=== PATIENT | female | born 1990 | race Caucasian/White ===

== ENCOUNTER 2018-02-22 19:21 | Emergency (ER) | payer BC, OTHER, SELFPAY ==
[2018-02-22 21:27] LABS: Absolute Lymphocytes (CBC) 2.2 K/uL (0.7-4.9); Absolute Monocytes 0.5 K/uL (0.1-1.3); Absolute Neutrophil 5.5 K/uL (1.8-8.0); Basophils % 0.8 % (0-1.3); Eosinophils % 0.8 % (0-4.4); Hematocrit 36.2 % (36.0-45.0); Lymphocytes % 26.2 % (15.3-44.8); MCH 32.4 pg (27.0-35.0); MPV 9.2 fL (7.6-11.3); RBC Red Blood Cell Count 3.89 M/uL (3.86-4.86)
[2018-02-22 21:29] LABS: BUN Blood Urea Nitrogen 12 mg/dL (7-18); Bicarbonate 23 mmol/L (21-32); Glucose Level 101 mg/dL (74-106); Potassium 3.6 mmol/L (3.5-5.1); Sodium Level 141 mmol/L (136-145); Troponin (Emerg Dept Use Only) < 0.02 ng/mL (0.0-0.045)
--- NOTE | 2018-02-22 21:48 | ER ---
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 pt ak1 c/o SOB with anxiety with chest pain. pt denies N/V. Transition of care: patient was not received from another setting of care. Onset of symptoms was February 22, 2018. Risk Assessment: Do you want to hurt yourself or someone else? Patient reports no desire to harm self or others. Initial Sepsis Screen: Does the patient meet any 2 criteria? No. Patient's initial sepsis screen is negative. Does the patient have a suspected source of infection? No. Patient's initial sepsis screen is negative. Care prior to arrival: None. 19:38 Method Of Arrival: Ambulatory ak1 19:38 Acuity: LARRY 3 ak1 Triage Assessment: 19:39 General: Appears in no apparent distress. Behavior is calm, cooperative. Pain: ak1 Complains of pain in chest. 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 - Social history:: Smoking status: Patient/guardian denies using tobacco. - Ebola Screening: : No symptoms or risks identified at this time. Screenin:42 Abuse screen: Denies threats or abuse. Denies injuries from another. Nutritional aj screening: No deficits noted. Tuberculosis screening: No symptoms or risk factors identified. Fall Risk None identified. Assessment: 21:42 General: Appears in no apparent distress. comfortable, Behavior is cooperative, aj appropriate for age, anxious. Pain: Denies pain. Neuro: Level of Consciousness is awake, alert, obeys commands, Oriented to person, place, time, situation, Appropriate for age. Cardiovascular: Reports since Episode of chest pain earlier this evening while at the dinner table. Respiratory: Airway is patent Respiratory effort is even, unlabored, Respiratory pattern is regular, symmetrical. Derm: Skin is intact, is healthy with good turgor, Skin is pink, warm \T\ dry. normal. 21:57 Reassessment: Patient appears in no apparent distress at this time. No changes from aj previously documented assessment. Patient and/or family updated on plan of care and expected duration. Pain level reassessed. Patient is alert, oriented x 3, equal unlabored respirations, skin warm/dry/pink. Patient states feeling better. Patient states symptoms have improved. 21:58 Pain: Pain began. aj Vital Signs: 19:39 BP 122 / 78; Pulse 81; Resp 16; Temp 97.6(TE); Pulse Ox 100% on R/A; Weight 63.5 kg ak1 (R); Height 5 ft. 4 in. (162.56 cm) (R); Pain 1/10; 19:55 BP 121 / 81 LA Supine (auto/reg); Pulse 75; Resp 21 S; Pulse Ox 100% on R/A; Pain 2/10; jp3 21:42 BP 128 / 82; Pulse 78; Resp 19; Pulse Ox 100% on R/A; aj 19:39 Body Mass Index 24.03 (63.50 kg, 162.56 cm) ak1 19:55 Pain report more pain than pressure but some pressure. jp3 ED Course: 19:23 Patient arrived in ED. as 19:24 Mya Clarke MD is Private Physician. as 19:39 Triage completed. ak1 19:39 Arm band placed on Patient placed in an exam room, on a stretcher, Patient notified of ak1 wait time. 19:40 Placed in gown. Bed in low position. Call light in reach. Side rails up X 1. Side rails jp3 up X2. Warm blanket given. clinical research monitor on. Pulse ox on. NIBP on. 19:45 EKG done, by ED staff, reviewed by Jose Estes MD. jp3 19:53 Stephy Carbajal, RN is Primary Nurse. aj 20:28 Jose Estes MD is Attending Physician. pkl 20:53 XRAY CXR (1 view) In Process Unspecified. EDMS 21:15 Inserted saline lock: 20 gauge in left antecubital area, using aseptic technique. Blood aj collected. 21:57 No provider procedures requiring assistance completed. IV discontinued, intact, aj bleeding controlled, No redness/swelling at site. Pressure dressing applied. Patient maintains SpO2 saturation greater than 95% on room air. Administered Medications: No medications were administered Outcome: 21:48 Discharge ordered by . jayant 21:57 Discharged to home ambulatory, with family. jill 21:57 Condition: good 21:57 Discharge instructions given to patient, family, Instructed on discharge instructions, follow up and referral plans. Demonstrated understanding of instructions, follow-up care. 21:58 Patient left the ED. aj Signatures: Dispatcher [employer] EDStephy Montenegro, RN Jose Butterfield MD MD pkl Martinez, Amelia as Krenek, Amber RN RN ak1 Alistair James jp3
--- NOTE | 2018-02-22 21:49 | EDPHYS ---
Physician Documentation [facility] Name: Gerri Grande Age: 27 yrs Sex: Female : 1990 Arrival Date: 02/22/2018 Time: 19:23 Bed 30 Private MD: Mya Clarke K ED Physician Jose Estes HPI: 02/22 20:35 This 27 yrs old Female presents to ER via Ambulatory with complaints of Chest pkl Pain. 20:35 The patient or guardian reports chest pain that is located primarily in the substernal pkl area. The pain does not radiate. Associated signs and symptoms: The patient has no apparent associated signs or symptoms. The chest pain is described as dull. The patient has not experienced similar symptoms in the past. 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 - Social history:: Smoking status: Patient/guardian denies using tobacco. - Ebola Screening: : No symptoms or risks identified at this time. ROS: 20:35 Eyes: Negative for injury, pain, redness, and discharge, ENT: Negative for injury, pkl pain, and discharge, Neck: Negative for injury, pain, and swelling. 20:35 Cardiovascular: Positive for chest pain. 20:35 Respiratory: Negative for cough, shortness of breath. 20:35 Abdomen/GI: Negative for abdominal pain, nausea, vomiting, and diarrhea. 20:35 Back: Negative for acute changes. 20:35 : Negative for urinary symptoms. 20:35 MS/extremity: Negative for acute changes. 20:35 Skin: Negative for rash. 20:35 Neuro: Negative for altered mental status. Exam: 20:35 Head/Face: Normocephalic, atraumatic. Eyes: Pupils equal round and reactive to light, pkl extra-ocular motions intact. Lids and lashes normal. Conjunctiva and sclera are non-icteric and not injected. Cornea within normal limits. Periorbital areas with no swelling, redness, or edema. ENT: Nares patent. No nasal discharge, no septal abnormalities noted. Tympanic membranes are normal and external auditory canals are clear. Oropharynx with no redness, swelling, or masses, exudates, or evidence of obstruction, uvula midline. Mucous membranes moist. Neck: Trachea midline, no thyromegaly or masses palpated, and no cervical lymphadenopathy. Supple, full range of motion without nuchal rigidity, or vertebral point tenderness. No Meningismus. Chest/axilla: Normal chest wall appearance and motion. Nontender with no deformity. No lesions are appreciated. Cardiovascular: Regular rate and rhythm with a normal S1 and S2. No gallops, murmurs, or rubs. Normal PMI, no JVD. No pulse deficits. Respiratory: Lungs have equal breath sounds bilaterally, clear to auscultation and percussion. No rales, rhonchi or wheezes noted. No increased work of breathing, no retractions or nasal flaring. Abdomen/GI: Soft, non-tender, with normal bowel sounds. No distension or tympany. No guarding or rebound. No evidence of tenderness throughout. Back: No spinal tenderness. No costovertebral tenderness. Full range of motion. Skin: Warm, dry with normal turgor. Normal color with no rashes, no lesions, and no evidence of cellulitis. MS/ Extremity: Pulses equal, no cyanosis. Neurovascular intact. Full, normal range of motion. Neuro: Awake and alert, GCS 15, oriented to person, place, time, and situation. Cranial nerves II-XII grossly intact. Motor strength 5/5 in all extremities. Sensory grossly intact. Cerebellar exam normal. Normal gait. Vital Signs: 19:39 BP 122 / 78; Pulse 81; Resp 16; Temp 97.6(TE); Pulse Ox 100% on R/A; Weight 63.5 kg ak1 (R); Height 5 ft. 4 in. (162.56 cm) (R); Pain 1/10; 19:55 BP 121 / 81 LA Supine (auto/reg); Pulse 75; Resp 21 S; Pulse Ox 100% on R/A; Pain 2/10; jp3 21:42 BP 128 / 82; Pulse 78; Resp 19; Pulse Ox 100% on R/A; aj 19:39 Body Mass Index 24.03 (63.50 kg, 162.56 cm) ak1 19:55 Pain report more pain than pressure but some pressure. jp3 MDM: 20:29 Patient medically screened. pkl 21:47 Data reviewed: vital signs, nurses notes, lab test result(s), EKG, radiologic studies, pkl plain films. 02/22 20:35 Order name: CBC with Diff; Complete Time: 21:45 pkl 02/22 20:35 Order name: Chem 7; Complete Time: 21:30 pkl 02/22 20:35 Order name: D-Dimer; Complete Time: 21:45 pkl 02/22 20:35 Order name: XRAY CXR (1 view) pkl 02/22 20:35 Order name: Troponin (emerg Dept Use Only); Complete Time: 21:30 pkl Administered Medications: No medications were administered Disposition: 02/22/18 21:48 Discharged to Home. Impression: Chest pain. - Condition is Stable. - Medication Reconciliation Form, Thank You Letter, Antibiotic Education, Prescription Opioid Use form. - Follow up: Private Physician; When: 2 - 3 days; Reason: Re-evaluation by your physician. - Problem is new. - Symptoms have improved. Signatures: Dispatcher [employer] EDStephy Montenegro RN RN Jose Chavarria MD MD pkl Rose Girard RN RN ak1 Corrections: (The following items were deleted from the chart) 21:58 21:48 02/22/2018 21:48 Discharged to Home. Impression: Chest pain. Condition is Stable. aj Forms are Medication Reconciliation Form, Thank You Letter, Antibiotic Education, Prescription Opioid Use. Follow up: Private Physician; When: 2 - 3 days; Reason: Re-evaluation by your physician. Problem is new. Symptoms have improved. pkl
--- NOTE | 2018-02-22 22:08 | RAD REPORT ---
EXAM DESCRIPTION: RAD - Chest Single View - 02/22/2018 8:53 pm CLINICAL HISTORY: Chest pain COMPARISON: None. TECHNIQUE: AP portable chest image was obtained 0 hours . FINDINGS: Lungs are clear. Heart and vasculature are normal. No measurable pleural effusion and no p neumothorax. No acute bony abnormality seen. No acute aortic findings suspected. IMPRESSION: No acute cardiopulmonary process.
--- NOTE | 2018-02-23 13:56 | EKG ---
Test Date: 2018-02-22 Test Time: 19:51:06 Legal Activity Adjudicator: DAQUAN MEASUREMENT RESULTS: Intervals: Rate: 73 NH: 148 QRSD: 82 QT: 390 QTc: 429 [place]: P: -9 NH: 148 QRS: 42 T: 30 INTERPRETIVE STATEMENTS: Normal sinus rhythm Normal ECG No previous ECG available for comparison Electronically Signed On 02-23-18 13:53:27 CDT by El Navarro
== END 2018-02-22 21:58 | disposition home or self-care (01) ==
LOC: ER 19:21
DX: R07.9 Chest pain, unspecified (principal)
CPT/HCPCS: 36415; 71045; 80048; 84484; 85025; 85379; 93005; 99285

== ENCOUNTER 2018-09-02 10:38 | Emergency (ER) | payer BC, SELFPAY ==
--- OUTSIDE RECORDS SUMMARY | 2018-09-02 10:42 | XMS REPORT ---
:1990 [facility] Address [address] [place] [address] [address]. Sch[address] [place] [address] Care Team Providers Name Role Phone Unavailable Unavailable Unavailable Problems This patient has no known problems. Allergies, Adverse Reactions, Alerts This patient has no known allergies or adverse reactions. Medications This patient has no known medications.
[2018-09-02 11:59] LABS: Absolute Monocytes 0.3 K/uL (0.1-1.3); Basophils % 0.2 % (0-1.3); Eosinophils % 0.4 % (0-4.4); Hematocrit 37.9 % (36.0-45.0); Lymphocytes % 16.1 % (15.3-44.8); MPV 9.3 fL (7.6-11.3); Monocytes % 4.8 % (3.3-12.3); RBC Red Blood Cell Count 3.94 M/uL (3.86-4.86)
[2018-09-02 12:20] LABS: Protime INR 1.14
[2018-09-02 12:24] LABS: ALT/SGPT 45 U/L (12-78); AST/SGOT 20 U/L (15-37); Albumin 4.3 g/dL (3.4-5.0); Alkaline Phosphatase 70 U/L (45-117); BUN Blood Urea Nitrogen 11 mg/dL (7-18); Bicarbonate 26 mmol/L (21-32); Bilirubin Direct 0.1 mg/dL (0-0.2); Bilirubin Total 0.6 mg/dL (0.2-1.0); Glucose Level 88 mg/dL (74-106); Magnesium 2.4 mg/dL (1.8-2.4); NT PRO-BNP 64 pg/mL (<125); Potassium 3.8 mmol/L (3.5-5.1); Protein, Total 7.6 g/dL (6.4-8.2); Sodium Level 143 mmol/L (136-145); Troponin (Emerg Dept Use Only) < 0.02 ng/mL (0.0-0.045)
--- NOTE | 2018-09-02 12:38 | RAD REPORT ---
EXAM DESCRIPTION: RAD - Chest Single View - 09/02/2018 12:21 pm CLINICAL HISTORY: CHEST PAIN Chest pain. COMPARISON: Chest Single View dated 02/22/2018 FINDINGS: Portable technique limits examination quality. The lungs are grossly clear. The heart is normal in size. No displaced fractures. IMPRESSION: No acute intrathoracic process suspected.
--- NOTE | 2018-09-02 13:34 | EDPHYS ---
Physician Documentation [facility] Name: Gerri Grande Age: 27 yrs Sex: Female : 1990 Arrival Date: 09/02/2018 Time: 10:39 Bed 5 Private MD: Mya Clarke K ED Physician Sergio Welsh HPI: 09/02 11:26 This 27 yrs old Female presents to ER via Ambulatory with complaints of Chest pm1 Pain, Arm Pain. 11:26 The patient or guardian reports chest pain that is located primarily in the anterior pm1 aspect of left upper chest and left armpit. The pain does not radiate. Associated signs and symptoms: Pertinent negatives: abdominal pain, cough, nausea, shortness of breath, vomiting. The chest pain is described as sharp. Duration: The patient or guardian reports multiple episodes, the episodes last approximately 1 second(s). Modifying factors: The symptoms are alleviated by nothing. the symptoms are aggravated by palpation of area. Severity of pain: in the emergency department the pain. The patient has not experienced similar symptoms in the past. The patient has not recently seen a physician. RIDING DOUBLE: 11:15 LMP N/A - control method hb Historical: - Allergies: 10:53 cherries; hb - Home Meds: 10:53 control daily [Active]; hb - PMHx: 10:53 None; hb - PSHx: 10:53 None; hb - Immunization history:: Adult Immunizations up to date. - Social history:: Smoking status: Patient/guardian denies using tobacco. - Ebola Screening: : No symptoms or risks identified at this time. ROS: 11:26 Constitutional: Negative for fever, chills, and weight loss, Eyes: Negative for injury, pm1 pain, redness, and discharge, ENT: Negative for injury, pain, and discharge, Neck: Negative for injury, pain, and swelling. 11:26 Respiratory: Negative for shortness of breath, cough, wheezing, and pleuritic chest pain, Abdomen/GI: Negative for abdominal pain, nausea, vomiting, diarrhea, and constipation, Back: Negative for injury and pain, : Negative for injury, bleeding, discharge, and swelling, MS/Extremity: Negative for injury and deformity, Skin: Negative for injury, rash, and discoloration, Neuro: Negative for headache, weakness, numbness, tingling, and seizure. 11:26 Cardiovascular: Positive for chest pain, Negative for edema, orthopnea, palpitations. Exam: 11:26 Constitutional: This is a well developed, well nourished patient who is awake, alert, pm1 and in no acute distress. Head/Face: Normocephalic, atraumatic. Eyes: Pupils equal round and reactive to light, extra-ocular motions intact. Lids and lashes normal. Conjunctiva and sclera are non-icteric and not injected. Cornea within normal limits. Periorbital areas with no swelling, redness, or edema. ENT: Nares patent. No nasal discharge, no septal abnormalities noted. Tympanic membranes are normal and external auditory canals are clear. Oropharynx with no redness, swelling, or masses, exudates, or evidence of obstruction, uvula midline. Mucous membranes moist. Neck: Trachea midline, no thyromegaly or masses palpated, and no cervical lymphadenopathy. Supple, full range of motion without nuchal rigidity, or vertebral point tenderness. No Meningismus. Chest/axilla: Normal chest wall appearance and motion. Nontender with no deformity. No lesions are appreciated. Cardiovascular: Regular rate and rhythm with a normal S1 and S2. No gallops, murmurs, or rubs. Normal PMI, no JVD. No pulse deficits. Respiratory: Lungs have equal breath sounds bilaterally, clear to auscultation and percussion. No rales, rhonchi or wheezes noted. No increased work of breathing, no retractions or nasal flaring. Abdomen/GI: Soft, non-tender, with normal bowel sounds. No distension or tympany. No guarding or rebound. No evidence of tenderness throughout. Back: No spinal tenderness. No costovertebral tenderness. Full range of motion. Skin: Warm, dry with normal turgor. Normal color with no rashes, no lesions, and no evidence of cellulitis. MS/ Extremity: Pulses equal, no cyanosis. Neurovascular intact. Full, normal range of motion. tenderness to left armpit 11:26 Neuro: Orientation: is normal, Motor: is normal, moves all fours. Vital Signs: 10:50 BP 124 / 80; Pulse 81; Resp 15; Temp 98.2; Pulse Ox 100% on R/A; Weight 61.23 kg; hb Height 5 ft. 4 in. (162.56 cm); Pain 4/10; 12:16 BP 111 / 71; Pulse 75; Resp 12; Temp 97.8(O); Pulse Ox 100% on R/A; mh5 14:05 BP 104 / 73; Pulse 78; Resp 21; Temp 98.1; Pulse Ox 100% on R/A; Pain 2/10; dm5 10:50 Body Mass Index 23.17 (61.23 kg, 162.56 cm) hb MDM: 10:59 Patient medically screened. pm1 13:32 Data reviewed: vital signs. Data interpreted: Pulse oximetry: on room air is 100 %. pm1 Interpretation: normal. Counseling: I had a detailed discussion with the patient and/or guardian regarding: the historical points, exam findings, and any diagnostic results supporting the discharge/admit diagnosis, lab results, the need for outpatient follow up, PCP, to return to the emergency department if symptoms worsen or persist or if there are any questions or concerns that arise at home. 09/02 11:12 Order name: Basic Metabolic Panel; Complete Time: 12:44 pm1 09/02 11:12 Order name: CBC with Diff; Complete Time: 12:04 pm1 09/02 11:12 Order name: LFT's; Complete Time: 12:44 pm1 09/02 11:12 Order name: Magnesium; Complete Time: 12:44 pm1 09/02 11:12 Order name: NT PRO-BNP; Complete Time: 12:44 pm1 09/02 11:12 Order name: PT-INR; Complete Time: 12:44 pm1 09/02 11:12 Order name: Troponin (emerg Dept Use Only); Complete Time: 12:44 pm1 09/02 11:12 Order name: XRAY Chest (1 view); Complete Time: 12:44 pm1 09/02 11:12 Order name: EKG; Complete Time: 11:14 pm1 09/02 11:12 Order name: Cardiac monitoring; Complete Time: 14:06 pm09/02 11:12 Order name: EKG - Nurse/Tech; Complete Time: 14:13 pm1 09/02 11:12 Order name: IV Saline Lock; Complete Time: 11:47 pm09/02 12:21 Order name: Urine Dipstick--Ancillary (enter results); Complete Time: 14:00 eb 09/02 12:21 Order name: Urine --Ancillary (enter results); Complete Time: 14:00 eb 09/02 11:12 Order name: Labs collected and sent; Complete Time: 11:47 pm1 09/02 11:12 Order name: O2 Per Protocol; Complete Time: 14:06 pm1 09/02 11:12 Order name: O2 Sat Monitoring; Complete Time: 14:06 pm1 09/02 11:12 Order name: Urine Dipstick-Ancillary (obtain specimen); Complete Time: 12:15 pm1 09/02 11:12 Order name: Urine Test (obtain specimen); Complete Time: 12:15 pm1 Administered Medications: No medications were administered Disposition: 15:32 Co-signature as Attending Physician, Sergio Welsh MD I agree with the assessment and kdr plan of care. Disposition: 09/02/18 13:32 Discharged to Home. Impression: Chest pain, unspecified. - Condition is Stable. - Discharge Instructions: Nonspecific Chest Pain. - Medication Reconciliation Form, Thank You Letter, Antibiotic Education, Prescription Opioid Use form. - Follow up: Emergency Department; When: As needed; Reason: Worsening of condition. Follow up: Mya Clarke MD; When: 2 - 3 days; Reason: Recheck today's complaints, Continuance of care, Re-evaluation by your physician. - Problem is new. - Symptoms have improved. Signatures: Dispatcher [facility] Linda Hannon RN RN dm5 Sergio Welsh MD MD [facility] Ajit Schwartz NP PULMONOLOGY TECHNICIAN pm1 Mercy Tai RN RN Corrections: (The following items were deleted from the chart) 14:08 13:32 09/02/2018 13:32 Discharged to Home. Impression: Chest pain, unspecified. dm5 Condition is Stable. Forms are Medication Reconciliation Form, Thank You Letter, Antibiotic Education, Prescription Opioid Use. Follow up: Emergency Department; When: As needed; Reason: Worsening of condition. Follow up: Mya Clarke; When: 2 - 3 days; Reason: Recheck today's complaints, Continuance of care, Re-evaluation by your physician. Problem is new. Symptoms have improved. pm1
--- NOTE | 2018-09-02 13:34 | ER ---
Nurse's Notes [facility] Name: Gerri Garnde Age: 27 yrs Sex: Female : 1990 Arrival Date: 09/02/2018 Time: 10:39 Bed 5 Private MD: Mya Clarke K Diagnosis: Chest pain, unspecified Presentation: 09/02 10:51 Presenting complaint: Sharp intermittent substernal chest pain that began this morning hb upon waking. Denies cough/fever/SOB/nausea. Transition of care: patient was not received from another setting of care. Onset of symptoms was September 02, 2018. Risk Assessment: Do you want to hurt yourself or someone else? Patient reports no desire to harm self or others. Initial Sepsis Screen: Does the patient meet any 2 criteria? No. Patient's initial sepsis screen is negative. Does the patient have a suspected source of infection? No. Patient's initial sepsis screen is negative. Care prior to arrival: None. 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 - Social history:: Smoking status: Patient/guardian denies using tobacco. - Ebola Screening: : No symptoms or risks identified at this time. Screenin:53 Abuse screen: Denies threats or abuse. Denies injuries from another. Nutritional hb screening: No deficits noted. Tuberculosis screening: No symptoms or risk factors identified. Fall Risk None identified. Assessment: 10:54 General: Appears in no apparent distress. Behavior is calm, cooperative. Pain: hb Complains of pain in chest Pain does not radiate. Pain currently is 4 out of 10 on a pain scale. Quality of pain is described as sharp, Pain began suddenly, 3 hours ago. Is intermittent, lasting a few seconds. Neuro: Level of Consciousness is awake, alert, obeys commands, Oriented to person, place, time, situation. Cardiovascular: Heart tones S1 S2 present Capillary refill < 3 seconds Patient's skin is warm and dry. Respiratory: Airway is patent Respiratory effort is even, unlabored, Respiratory pattern is regular, symmetrical, Breath sounds are clear bilaterally. GI: No signs and/or symptoms were reported involving the gastrointestinal system. : No signs and/or symptoms were reported regarding the genitourinary system. EENT: No signs and/or symptoms were reported regarding the EENT system. Derm: Skin is intact, is healthy with good turgor. Musculoskeletal: No signs and/or symptoms reported regarding the musculoskeletal system. Vital Signs: 10:50 BP 124 / 80; Pulse 81; Resp 15; Temp 98.2; Pulse Ox 100% on R/A; Weight 61.23 kg; hb Height 5 ft. 4 in. (162.56 cm); Pain 4/10; 12:16 BP 111 / 71; Pulse 75; Resp 12; Temp 97.8(O); Pulse Ox 100% on R/A; mh5 14:05 BP 104 / 73; Pulse 78; Resp 21; Temp 98.1; Pulse Ox 100% on R/A; Pain 2/10; dm5 10:50 Body Mass Index 23.17 (61.23 kg, 162.56 cm) hb ED Course: 10:39 Patient arrived in ED. as 10:40 Mya Clarke MD is Private Physician. as 10:48 [facility]. pm1 10:48 Sergio Welsh MD is Attending Physician. pm1 10:50 Mercy Tai, MESSI is Primary Nurse. hb 10:52 Triage completed. hb 10:53 Arm band placed on. hb 10:53 Patient has correct armband on for positive identification. Placed in gown. Bed in low hb position. Call light in reach. Side rails up X 1. cafeteria monitor on. Pulse ox on. NIBP on. 10:56 EKG done, by gastroenterology technician. reviewed by Sergio Welsh MD. tc 11:00 Warm blanket given. [facility] 11:46 Initial lab(s) drawn, by ms, sent to lab. Inserted saline lock: 22 gauge in right 5 antecubital area, using aseptic technique. Blood collected. 11:46 Basic Metabolic Panel Sent. 5 11:46 CBC with Diff Sent. [facility] 11:46 LFT's Sent. mh5 11:46 Magnesium Sent. 5 11:46 NT PRO-BNP Sent. 5 11:46 PT-INR Sent. 5 11:47 Troponin (emerg Dept Use Only) Sent. 5 12:15 Urine collected: clean catch specimen, clear, Amount Voided: 240mL. 5 12:18 X-ray completed. Portable x-ray completed in exam room. Patient tolerated procedure sw well. 12:20 XRAY Chest (1 view) In Process Unspecified. EDMS 13:32 Mya Clarke MD is Referral Physician. pm1 14:00 No provider procedures requiring assistance completed. Patient maintains SpO2 hb saturation greater than 95% on room air. 14:05 IV discontinued, intact, bleeding controlled, No redness/swelling at site. Pressure dm5 dressing applied. Administered Medications: No medications were administered Outcome: 13:32 Discharge ordered by . pm1 14:00 Discharged to home ambulatory. 14:00 Condition: stable 14:00 Discharge instructions given to patient, Instructed on discharge instructions, follow up and referral plans. medication usage, Demonstrated understanding of instructions, follow-up care, medications. 14:08 Patient left the ED. dm5 Signatures: Dispatcher [employer] EDMS Linda Hannon, RN RN 5 Jenny Diana Tiffany, digital tech EKG Bibi Manning Patrick, [facility] pm1 Mercy Tai, MESSI RN [place] Joseph [facility]
[2018-09-02 13:57] LABS: Urine Blood TRACE (NEG); Urine Glucose NEGATIVE (NEG); Urine Protein NEGATIVE (NEG); Urine Specific Gravity 1.015 (1.005-1.030)
--- NOTE | 2018-09-03 07:15 | EKG ---
Test Date: 2018-09-02 Test Time: 10:56:42 Defense Travel Administrator: JESSICA MEASUREMENT RESULTS: Intervals: Rate: 78 [place]: 154 QRSD: 82 QT: 378 QTc: 430 [place]: P: 64 [place]: 154 QRS: 40 T: 39 INTERPRETIVE STATEMENTS: Normal sinus rhythm Normal ECG Compared to ECG 02/22/2018 19:51:06 No significant changes Electronically Signed On 09-03-18 07:11:48 CDT by [place]
== END 2018-09-02 14:08 | disposition home or self-care (01) ==
LOC: ER 10:38
DX: R07.9 Chest pain, unspecified (principal)
CPT/HCPCS: 36415; 71045; 80048; 80076; 81003; 81025; 83735; 83880; 84484; 85025; 85610; 93005; 99285